=== PATIENT | male | born 1945 | race Caucasian/White ===

== ENCOUNTER → 2018-11-05 | Day surgery (SDC) | payer OTHER ==
[2015-06-19 18:19] VITALS: BP 122/949
[~2018-11-05] MED LIST: ASPIRIN E.C. 8181 MG PO; BUSPAR 15MG TAB15 MG PO; CYPROHEPTADINE H4 M1 PO; HYDROCORTISON28.4 GM TOP; MINIPRESS2 MG PO; NEURONTIN300 MG/CAP PO; PRILOSEC 20MG20 MG PO; PROSCAR PO; SYNTHROID137 MCG PO; UNISOM SLEEPGEL50 MG PO
== END ==
LOC: MSO 09:16
DX: Z12.11 Encounter for screening for malignant neoplasm of colon (principal); D12.3 Benign neoplasm of transverse colon; D12.8 Benign neoplasm of rectum; I10 Essential (primary) hypertension; E03.9 Hypothyroidism, unspecified; E11.9 Type 2 diabetes mellitus without complications; Z86.010 Personal history of colon polyps; Z90.49 Acquired absence of other specified parts of digestive tract; Z79.82 Long term (current) use of aspirin; I25.10 Atherosclerotic heart disease of native coronary artery without angina pectoris; I25.2 Old myocardial infarction; J44.9 Chronic obstructive pulmonary disease, unspecified; F17.210 Nicotine dependence, cigarettes, uncomplicated; Z88.6 Allergy status to analgesic agent; Z88.8 Allergy status to other drugs, medicaments and biological substances; F43.10 Post-traumatic stress disorder, unspecified
CPT/HCPCS: 00811; J2704; J7030

== ENCOUNTER → 2023-08-08 | Outpatient (CLI) | payer MEDICARE, OTHER | LOC: RAD 11:13 | DX: M43.9 Deforming dorsopathy, unspecified (principal) ==

== ENCOUNTER 2023-11-30 11:09 | Emergency (ER) | payer MEDICARE, OTHER ==
[~2023-11-30] VITALS: Ht 175.3 cm; Wt 59.1 kg
[2023-11-30] MEDS ORDERED: Lidocaine 4% Topical Patch TP ONE (11:45)
[2023-11-30] MEDS ORDERED: Ketorolac 30 MG/ML VIAL IM ONE ×2 (12:30→13:00)
[2023-11-30 12:49] LABS: BASO # 0.02 K/mm3 (0.02-0.10); EOS # 0.06 K/mm3 (0.04-0.40); EOS % 0.6 % (0.0-4.0); HEMATOCRIT 44.1 % (42.0-52.0); HEMOGLOBIN 14.5 g/dL (13.5-18.0); LYMPH# 0.79 K/mm3 (1.50-4.00); MEAN CELL VOLUME 91 fl (78-100); MEAN CORPUSCULAR HEMOGLOBIN 30 pg (27-31); MEAN CORPUSCULAR HGB CONC 33 g/dL (33-37); MEAN PLATELET VOLUME 9.8 fl (7.4-10.4); MONO # 0.69 K/mm3 (0.20-0.80); NEU # 8.37 K/mm3 (1.40-6.50); PLATELET COUNT 191 K/mm3 (130-400); RED BLOOD COUNT 4.83 M/mm3 (4.20-5.60); RED CELL DISTRIBUTION WIDTH 12.5 % (11.5-14.5)
[2023-11-30 12:58] LABS: CALCIUM 9.9 mg/dL (8.3-10.5)
[2023-11-30 13:00] LABS: TOTAL PROTEIN 6.6 g/dL (6.2-8.1)
[2023-11-30] MEDS ORDERED: Ketorolac 30 MG/ML VIAL IV ONE (13:00)
[2023-11-30 13:01] LABS: TOTAL BILIRUBIN 0.5 mg/dL (0.2-1.2)
[2023-11-30] MEDS ORDERED: Iohexol 300 - 100 ML VIAL IV ONE (13:10)
[2023-11-30 15:35] VITALS: BP 148/90
== END 2023-11-30 15:38 | disposition short-term general hospital (02) ==
LOC: ED 11:09
PROVIDERS: Physician Assistant
DX: S32.030A Wedge compression fracture of third lumbar vertebra, initial encounter for closed fracture (principal); S22.080A Wedge compression fracture of T11-T12 vertebra, initial encounter for closed fracture; W19.XXXA Unspecified fall, initial encounter; Y92.009 Unspecified place in unspecified non-institutional (private) residence as the place of occurrence of the external cause
CPT/HCPCS: J1885; Q9967